=== PATIENT | female | born 1955 | race Caucasian/White ===

== ENCOUNTER 2021-05-29 11:04 | Emergency (ER) | payer BC, MEDICARE ==
[~2021-05-29] VITALS: Ht 157.5 cm; Wt 85.3 kg
[~2021-05-29 11:04] MED LIST: ALLEGRA-D 12 H1 EACH; BACTRIM 400-801 EACH; MINOCIN100 MG; PROAIR HFA INH8.5 GM; RELENZA5 MG; Z.0.LOSARTAN-HCTZ1 E; Z.0.LOVASTATIN20 MG
[2021-05-29 15:25] VITALS: BP 136/71
== END 2021-05-29 12:36 | disposition home or self-care (01) ==
LOC: ER 11:15
DX: J40 Bronchitis, not specified as acute or chronic (principal); I10 Essential (primary) hypertension; Z86.711 Personal history of pulmonary embolism
CPT/HCPCS: 71046; 99283